=== PATIENT | female | born 1940 | race American Indian/Alaskan Native ===

== ENCOUNTER 2020-05-06 11:43 | Outpatient (CLI) | payer MEDICARE ==
--- NOTE | 2020-05-06 15:13 | XRay Report ---
RIGHT FEMUR 5 VIEWS INDICATION / CLINICAL INFORMATION: UNSPECIFIED INJURY OF RIGHT HIP,INITIAL ENCOUNTER. COMPARISON: None FINDINGS: Intramedullary romi is in position from an old intertrochanteric fracture. Bones are osteopenic, but I see no acute fracture. Signer Name: Rolf Gonzalez MD Signed: 05/06/2020 3:08 PM Workstation Name: [id number]
== END 2020-05-06 11:44 | disposition home or self-care (01) ==
LOC: XRAY 11:43
PROVIDERS: ATTEND Orthopaedic Surgery
DX: S72.141D Displaced intertrochanteric fracture of right femur, subsequent encounter for closed fracture with routine healing (principal); X58.XXXD Exposure to other specified factors, subsequent encounter

== ENCOUNTER 2020-06-17 10:26 | Outpatient (CLI) | payer MEDICARE ==
--- NOTE | 2020-06-17 12:25 | XRay Report ---
RIGHT HIP 5 VIEWS INDICATION / CLINICAL INFORMATION: RIGHT HIP PAIN. COMPARISON: 03/01/2008 FINDINGS: Intramedullary nail through an old intertrochanteric fracture. No appreciable new fracture. Bones of the pelvis are diffusely abnormal, with a mixed lytic and sclerotic pattern but accompanied by some cortical thickening. This process spares the femurs and has not changed significantly in the 3 month interval. Recent skeletal survey apparently showed a few scattered lesions elsewhere, suggest ing myeloma or metastasis. Signer Name: Rolf Gonzalez MD Signed: 06/17/2020 12:21 PM Workstation Name: [id number]
== END 2020-06-17 10:27 | disposition home or self-care (01) ==
LOC: XRAY 10:26
PROVIDERS: ATTEND Orthopaedic Surgery
DX: S72.001D Fracture of unspecified part of neck of right femur, subsequent encounter for closed fracture with routine healing (principal); X58.XXXD Exposure to other specified factors, subsequent encounter